=== PATIENT | female | born 1995 | race Caucasian/White ===

== ENCOUNTER 2024-12-14 12:05 | Emergency (ER) | payer OTHER, SELFPAY ==
[2024-12-14 12:11] VITALS: BP 98/69
[2024-12-14 12:37] VITALS: BMI 28.8
[2024-12-14 12:44] VITALS: BP 106/67
[2024-12-14 12:51] LABS: Urine Character Slightly Cloudy (Clear)
[2024-12-14 12:53] LABS: Hematocrit 41.1 % (37.0-47.0); Hemoglobin 13.9 g/dL (12.0-16.0); Mean Corp Hgb Conc. 33.8 g/dL (33.0-37.0); Mean Corpuscular Volume 95.1 fL (81.0-99.0); Nucleated Red Blood Cells % 0 %; Platelet Count 311 10^3/uL (130-400); Red Cell Dist. Width 11.9 % (11.5-14.5)
[2024-12-14 13:00] VITALS: BP 109/64
[2024-12-14 13:19] LABS: ALT (SGPT) 20 U/L (0-35); AST (SGOT) 18 U/L (14-36); Albumin 4.5 g/dl (3.5-5.0); Alkaline Phosphatase 50 U/L (38-126); Blood Urea Nitrogen 11 mg/dl (7-17); Calcium 9.6 mg/dl (8.4-10.2); Carbon Dioxide 27 mmol/L (22-30); Chloride 107 mmol/L (98-107); Estimated Creatinine Clearance > 125 ml/min; Glucose 84 mg/dl (70-99); Lipase 126 U/L (23-300); Potassium 4.2 mmol/L (3.5-5.1); Sodium 139 mmol/L (135-145); Total Protein 7.0 g/dl (6.3-8.2); eGFR > 60.00
--- NOTE | 2024-12-14 13:26 | ED.GENMED ---
History of Present Illness
General
Chief Complaint: Abdominal Pain
Source: patient
Exam Limitations: none
Time Seen by Provider: 12/14/24 13:08
Nursing documentation reviewed up to this point in time: agreed with
History of Present Illness
History of Present Illness:
see MDM
Past History
Social History
Tobacco: Non-smoker
Alcohol: None
Review of Systems
Review of Systems
Allergies reviewed?: Yes
All Other Systems: Not applicable
Phy Exam
Physical Exam
Physical Exam:
GENERAL: Alert , in no apparent distress
EYE: pupils equal and reactive
NECK: Supple
ENT: o/p clr, mmm.
CARDIAC: Regular rate and rhythm .
LUNGS: Clear breath sounds bilaterally, no acute respiratory distress, no wheezes/rales/rhonchi
ABDOMEN: Soft, without focal tenderness, no r/g, no cvat, normal bowel sounds
NEUROLOGICAL: Alert and oriented, no focal neuro deficits
SKIN: Warm and dry, skin intact.
MUSCULOSKELETAL: No edema, well perfused. neg cinda's sign
PSYCH: Normal and appropriate interaction.
Course
Orders/Labs/Results
Orders:
Orders
12/14/24 12:14
Electrocardiogram (*1) Urgent
Reason for Study: Abdominal Pain
EKG- Treatment ONCE
Straight cath- Treatment ONCE
12/14/24 12:36
Complete Blood Count/With Diff Urgent
Comprehensive Metabolic Panel Urgent
HCG, Serum Qualitative Screen Urgent
Comment: HCG SERUM QUALITATIVE ADDED ON BY FLOOR 1:50PM 12-14-24
Lipase Urgent
TSH Reflex To Free T4 Urgent
Comment: ADD ON
Urinalysis Reflex To Culture Urgent
Date Specimen was Collected: 12/14/24
Time Specimen was Collected: 12:14
12/14/24 13:52
Add On- LAB Urgent
Tests Added?: hcg serum qualitative
12/14/24 13:59
CT Abd/Pel (IV only)-DH only Urgent
Comment:
Reason For Exam: LUQ pain x months, worse x 2 days, temp
Ketorolac [Toradol] 30 mg IV NOW STA
12/14/24 16:09
Add On- LAB Urgent
Tests Added?: tsh reflex t4
Abnormal Lab Results
12/14/24
12:36
MCH 32.2 H pg
(27.0-31.0)
MPV 11.0 H fL
(7.4-10.4)
12/14/24 12:36
12/14/24 12:36
Vital Signs
Initial and Last Documented VS:
Initial Vital Signs
Temp Pulse Resp BP Pulse Ox
36.6 C 79 15 98/69 99
12/14/24 12:11 12/14/24 12:11 12/14/24 12:11 12/14/24 12:11 12/14/24 12:11
Last Documented Vital Signs
Temp Pulse Resp BP Pulse Ox
36.6 C 79 15 109/64 98
12/14/24 12:11 12/14/24 12:11 12/14/24 12:11 12/14/24 13:00 12/14/24 14:46
MDM/Problems Addressed
Differential Diagnosis Includes:
see MDM
MDM/Problems Addressed:
Note:
CHIEF COMPLAINT(S)
Abdominal pain and numbness in hands.
HISTORY OF PRESENT ILLNESS
The patient is a 29-year-old female presenting with a history of abdominal pain that has recently intensified. The abdominal pain is located in the upper left quadrant and occasionally extends to the back. The patient describes the pain as feeling
similar to a balloon being inflated with hot air, which has also contributed to waking them in the night. The pain has been recurring over the past two months. She notes increased frequency and intensity of these symptoms. Over the weekend, she
experienced profound fatigue, feeling unable to remain upright due to exhaustion and pain, necessitating frequent rest.
The patient also reports intermittent numbness and cramping in her hands, sometimes experiencing complete loss of hand control. She denies hyperventilating and vomited but did feel lightheaded initially. There has been increased tingling in the
hands over the past 6 to 12 months, which she initially attributed to sleeping positions.
She reports changes in bowel habits, experiencing constipation where stool passage is difficult and less frequent, going from previously three times a day to possibly every other day. She has a family history of gastrointestinal issues, specifically
her father having colitis and grandmother having Crohns disease. She denies weight loss but has experienced low-grade fevers lately. She also experienced nausea but does not associate the pain with eating specific foods despite noticing a
sensitivity to acidic foods.
The patient underwent a previous evaluation five years ago, including an abdominal x-ray that suggested a possible obstruction, but she has not had an endoscopy or colonoscopy.
PAST MEDICAL AND SURIGICAL HISTORY
The patient has undergone three hip surgeries, two arthroscopies on her left hip and one on her right hip, for labrum tears and subsequent complications leading to [id number] friction. She is advised for a possible hip replacement.
REVIEW OF SYSTEMS
- General: Profound fatigue, low-grade fever recently noted.
- Gastrointestinal: Abdominal pain, nausea, changes in bowel habits, no vomiting.
- Neurological: Intermittent numbness and tingling in hands.
- Musculoskeletal: History of hip surgeries; pain extends from abdomen to back.
- Constitutional: Lightheadedness, profound fatigue.
SOCIAL DETERMINANTS AFFECTING HEALTH
The patient is not currently on control and has not been since 2019.
PHYSICAL EXAM
- Nursing notes reviewed and vital signs reviewed.
- GENERAL: Alert , in no apparent distress, well-appearing
EYE: pupils equal and reactive
NECK: Supple
ENT: o/p clr, mmm.
CARDIAC: Regular rate and rhythm .
LUNGS: Clear breath sounds bilaterally, no acute respiratory distress, no wheezes/rales/rhonchi
ABDOMEN: Soft, mild left upper quadrant tenderness, no r/g, no cvat, normal bowel sounds
NEUROLOGICAL: Alert and oriented, no focal neuro deficits sensation and strength intact in extremities
SKIN: Warm and dry, skin intact.
MUSCULOSKELETAL: No edema, well perfused. neg cinda's sign
PSYCH: Normal and appropriate interaction.
PROBLEM LIST
Acute:
- Abdominal pain
- Numbness in hands, resolved
- Changes in bowel habits
Chronic:
- Hip pain post-surgery with possible need for replacement
PLAN
- Blood work was conducted at the initial visit.
- Ordered a computed tomography scan with intravenous contrast to evaluate the abdominal organs, including the colon, spleen, pancreas, and stomach.
- Discussion about potential pain management with intravenous ketorolac if needed.
- Consideration for proton pump inhibitor trial if investigations do not reveal significant findings.
DIFFERENTIAL DIAGNOSIS
The Differential Diagnosis includes, in no particular order and is not limited to:
- Gastroesophageal Reflux Disease
- Peptic Ulcer Disease
- Pancreatitis
- Inflammatory Bowel Disease
- Intestinal Obstruction
- Gastroparesis
- Renal Stones
- Viral Gastroenteritis
- Colitis
- Gastritis
CARE-UPDATE
12/14/24 - 15:57
Blood work, including a complete blood count and chemistry panel, returned normal results, with no significant findings in liver markers or pancreatic enzymes. The CT scan did not reveal any worrisome features, although it noted a 1.7 cm low
attenuation lesion in the liver, likely a benign hemangioma, which can be further characterized by an outpatient MRI. The GI team can facilitate this order if necessary. The pancreas appears normal, which alleviates some concerns regarding the
patients pain location. Symptoms may suggest a gastric issue or possibly irritable bowel syndrome, as pain could be colonic. To address ongoing symptoms, a two-week course of Protonix has been prescribed, with instructions to take it on an empty
stomach with water, 45 minutes before consuming anything else. thyroid tests added as pt also complaining of chronic fatigue
unclear cuase for pt's intermittent hand tingling; resolved; no ongoin neck issues, no weakness, normal electrolytes
defer to outpatient testing
TSH Normal
*Pulse Oximetry
SaO2: 99
Oxygen Mode of Delivery: Room air
Patient hypoxic: no (98)
*Critical Care Note
Total Time (30-74mins, 75-104mins- exclusive of procedures): Not Applicable
ED Attending Note
-
Portions of this chart may have been created with voice recognition software.� Occasional wrong word or��sound alike� substitutions may have occurred due to the inherent limitations of voice recognition software.
Discharge Plan
Departure
Patient Disposition: Home (Routine Discharge)
Date of Disposition: 12/14/24
Time of Disposition: 16:09
Patient with high blood pressure during this ER visit?: No
Condition: Fair
Covid-19: Not Applicable
Discharge Problem:
Abdominal pain
Instructions: Abdominal Pain
Prescriptions:
New
pantoprazole [Protonix] 20 mg tablet,delayed release (DR/EC)
20 mg PO DAILY Qty: 15 0RF
Referrals:
UNKNOWN - PT DOES,NOT KNOW [Family Provider]
Activity Restrictions/Additional Instructions:
WE ARE NOT SURE THE CAUSE OF YOUR ABDOMINAL PAIN
I SENT OFF A THYROID TEST - YOU CAN CHECK THE RESULTS ON THE PATIENT PORTAL
YOUR CAT SCAN SHOWED A SMALL SPOT IN YOUR LIVER THAT MAY NEED FURTHER IMAGING LIKE MRI
TALKT O YOUR DOCTOR ABOUT IT BUT IT IS VERY UNLIKELY TO CAUSE PAIN
TRY PROTONIX 20 MG ONCE A DAY ON EMPTY STOMACH IN THE MORNING AND WAIT 1 HOUR BEFORE EATING
FOLLOW UP WITH GI
RETURN FOR CONCERNS.
Interventions
Interventions:
*Risk Screen - Suicide Last Done: 12/14/24 12:11
*General Assessment Last Done: 12/14/24 12:11
*Neglect/Abuse Screening Last Done: 12/14/24 12:11
*ED- Fall Risk Assessment Last Done: 12/14/24 12:45
*ED COVID-19 Vaccine History Last Done: 12/14/24 12:11
*Nursing Disposition Last Done: 12/14/24 16:40
[facility]rs[facility] Assessment Last Done: 12/14/24 12:45
Discharge Date and Time
Discharge Date/Time: 12/14/24 16:41
Print Language: BELARUSIAN
[2024-12-14] MEDS: TORADOL 30 MG IV (14:08)
[2024-12-14 14:41] LABS: HCG, Serum Qualitative Screen Negative
== END 2024-12-14 16:41 | disposition home or self-care (01) ==
LOC: EMR 12:05
PROVIDERS: Emergency Medicine; EMERGENCY PHYSICIAN Emergency Medicine
DX: R10.12 Left upper quadrant pain (principal); R11.0 Nausea; K59.00 Constipation, unspecified; R53.83 Other fatigue; R42 Dizziness and giddiness; R20.0 Anesthesia of skin; R25.2 Cramp and spasm; R20.2 Paresthesia of skin; K76.9 Liver disease, unspecified; Z88.5 Allergy status to narcotic agent
CPT/HCPCS: 99285; 96374; 74177; 80053; 81003; 83690; 84443; 84703; 85025; 93005; Q9967